=== PATIENT | male | born 1965 | race Caucasian/White ===

== ENCOUNTER 2018-08-04 21:06 | Emergency (ER) | payer OTHER ==
[~2018-08-04] VITALS: Ht 172.7 cm; Wt 72.6 kg
[2018-08-04 21:20] VITALS: BP 150/80
--- NOTE | 2018-08-04 21:56 | PHYS DOC ---
Adult General Chief Complaint Chief Complaint: LACERATION/AVULSION [facility] HPI Patient is a 53-year-old male who presents with laceration to his lower lip that occurred little less than an hour ago. Patient states that a metal handle hit him on the lip, cutting his lip. He denies any other injuries. Review of Systems Review of Systems Constitutional: Denies fever or chills [] Respiratory: Denies cough or shortness of breath [] Cardiovascular: No additional information not addressed in HPI [] Integument: Positive laceration lower lip[] Allergies Allergies Allergies Coded Allergies Type Severity Reaction Last Updated Verified No Known Drug Allergies 08/04/18 No Physical Exam Physical Exam Constitutional: Well developed, well nourished, no acute distress, non-toxic appearance. [] HENT: Normocephalic, atraumatic, a small 1 cm laceration is noted to the lower lip extending through the vermilion border. Laceration extends into subcutaneous tissue with sharp margins. [] Eyes: PERRLA, EOMI, conjunctiva normal, no discharge. [] Cardiovascular:Heart rate regular rhythm, no murmur [] Lungs & Thorax: Bilateral breath sounds clear to auscultation [] EKG EKG [] Radiology/Procedures Radiology/Procedures [] Course & Med Decision Making Course & Med Decision Making Pertinent Labs and Imaging studies reviewed. (See chart for details) Laceration Repair by me: Anesthesia: 1% lidocaine locally Location: Lower lip Tendon/Joint/Nerves: No injury Foreign body: None detected after copious irrigation and exploration Technique: A total of 3 Simple Interrupted Sutures utilizing 6-0 Ethilon suture material as gut suture not available Complexity: No subcutaneous sutures/mucosal repair/edge excision Post Closure Length: 1 cm Patient's bleeding was easily controlled in the department and there is no indication of anemia. No evidence of compartment syndrome, neurologic injury, vascular injury, open joint, tendon laceration, or foreign body. Patient is appropriate for outpatient follow up. 48 hour wound check. Scar minimization instructions given. Dragon Disclaimer Dragon Disclaimer This electronic medical record was generated, in whole or in part, using a voice recognition dictation system. Departure Departure: Impression: Primary Impression: Lip laceration Disposition: 01 HOME, SELF-CARE Condition: STABLE Referrals: MILA STAPLES MD (PCP) Patient Instructions: Facial Laceration, Laceration Care, Adult Additional Instructions: Return for suture removal in 5 days. Problem Qualifiers Primary Impression: Lip laceration Encounter type: initial encounter Qualified Codes: S01.511A - Laceration without foreign body of lip, initial encounter FRANCESCA MASSEY Jr. DO Aug 04, 2018 21:56
[2018-08-04] MEDS ORDERED: DIPHTH,PERTUSS(ACELL),TET TOX 0.5 ML DISP.SYRIN. VAX IM ONE (22:00)
== END 2018-08-04 22:03 | disposition home or self-care (01) ==
LOC: ER 21:06
DX: S01.511A Laceration without foreign body of lip, initial encounter (principal); W26.8XXA Contact with other sharp object(s), not elsewhere classified, initial encounter; Y93.89 Activity, other specified; Y92.89 Other specified places as the place of occurrence of the external cause; Y99.8 Other external cause status
CPT/HCPCS: 12011; 90471; 90715; 99283-25

== ENCOUNTER 2018-10-03 10:33 | Emergency (ER) | payer OTHER ==
[~2018-10-03] VITALS: Ht 172.7 cm; Wt 70.3 kg
[2018-10-03 10:48] VITALS: BP 138/83
[2018-10-03] MEDS ORDERED: IBUPROFEN 600 MG TABLET. PO ONE (11:00)
[2018-10-03] MEDS ORDERED: ORPH-16 PO (11:09)
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
[2018-10-03] MEDS ORDERED: BACITRACIN ZINC TOPICAL OINT PACKET. TP ONE (11:17)
--- NOTE | 2018-10-03 11:24 | RAD ---
TIBIA FIBULA LEFT, LEFT FEMUR XRAY History: Pain and swelling.. Two-view left femur Oblique cortical lucency at the posterior shaft of femur compatible with a nutrient canal. No aggressive bone destruction, periosteal reaction or acute fracture. No significant soft tissue abnormality. Two-view left tibia fibula No evidence of an acute fracture there is a chronic appearing ossicle just inferior to the medial malleolus likely due to old trauma or unfused ossification center. No periosteal reaction. IMPRESSION: No acute radiographic findings. Electronically signed by: Braxton Trevino MD (10/03/2018 11:22 AM) [facility]
== END 2018-10-03 11:35 | disposition home or self-care (01) ==
LOC: ER 10:33
DX: S80.12XA Contusion of left lower leg, initial encounter (principal); S70.12XA Contusion of left thigh, initial encounter; S00.83XA Contusion of other part of head, initial encounter; S50.311A Abrasion of right elbow, initial encounter; V29.49XA Motorcycle driver injured in collision with other motor vehicles in traffic accident, initial encounter; Y93.I9 Activity, other involving external motion; Y92.488 Other paved roadways as the place of occurrence of the external cause; Y99.8 Other external cause status
CPT/HCPCS: 73552; 73590; 99284

== ENCOUNTER 2018-12-14 23:32 | Emergency (ER) | payer OTHER ==
[~2018-12-14] VITALS: Ht 172.7 cm; Wt 70.3 kg
[~2018-12-14 23:32] MED LIST: ORPH-16 PO
[2018-12-14] MEDS ORDERED: ONDANSETRON PF 4 MG/2 ML VIAL. IV ONE (23:45)
[2018-12-14] MEDS ORDERED: IV NORMAL SALINE 1,000ML 1,000 ML IV ONE (23:45)
[2018-12-14 23:46] VITALS: BP 164/82
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
[2018-12-15 00:21] LABS: BASO % 0 % (0-3); EOS % 0 % (0-3); HEMATOCRIT 48.4 % (39.0-53.0); HEMOGLOBIN 16.6 g/dL (13.0-17.5); LYMPH # 0.9 x10^3/uL (1.0-4.8); LYMPH % 9 % (24-48); MEAN CORPUSCULAR HEMOGLOBIN 32 pg (25-35); MEAN CORPUSCULAR HGB CONC 34 g/dL (31-37); MEAN CORPUSCULAR VOLUME 93 fL (79-100); MONO # 0.2 x10^3/uL (0.0-1.1); MONO % 3 % (0-9); NEUT # 8.7 x10^3uL (1.8-7.7); NEUT % 88 % (31-73); PLATELET COUNT 193 x10^3/uL (140-400); RED BLOOD COUNT 5.23 x10^6/uL (4.30-5.70); WHITE BLOOD COUNT 9.9 x10^3/uL (4.0-11.0)
[2018-12-15 00:34] LABS: ALBUMIN 4.3 g/dL (3.4-5.0); ALBUMIN/GLOBULIN RATIO 1.6 (1.0-1.7); CALCIUM 9.4 mg/dL (8.5-10.1); CREATININE 1.1 mg/dL (0.7-1.3); GFR 69.5; POTASSIUM 4.3 mmol/L (3.5-5.1); TOTAL BILIRUBIN 0.4 mg/dL (0.2-1.0)
[2018-12-15 01:04] LABS: BILIRUBIN,URINE NEG (NEG); CLARITY,URINE CLEAR; COLOR,URINE YELLOW; GLUCOSE,URINE NEG (NEG); NITRITE,URINE NEG (NEG); RBC,URINE RARE /HPF (0-2); UROBILINOGEN,URINE 0.2 mg/dL (0.2 mg/dL); WBC,URINE OCC /HPF (0-4)
[2018-12-15 01:05] LABS: AMORPHOUS SEDIMENT,UR PRESENT /HPF; BACTERIA,URINE FEW /HPF (0-FEW)
== END 2018-12-15 01:20 | disposition home or self-care (01) ==
LOC: ER 23:32
DX: R11.2 Nausea with vomiting, unspecified (principal); T43.615A Adverse effect of caffeine, initial encounter; Y92.89 Other specified places as the place of occurrence of the external cause
CPT/HCPCS: 36415; 80053; 81001; 82947; 85025; 96361; 96374; 99284; J2405; J7030